=== PATIENT | male | born 1995 | race Two or more races ===

== ENCOUNTER 2023-10-18 15:40 | Emergency (ER) | payer OTHER ==
[2023-10-18 15:49] VITALS: BP 114/75; PULSE 91; RESP 16; TEMP 97.9; BMI 26.0
[2023-10-18] MEDS ORDERED: ACETAMINOPHEN INJECTION 100 ML IVPB ONE (16:35)
[2023-10-18] MEDS ORDERED: MAG HYDROX/AL HYDROX/SIMETH 30 ML UNIT-DOSE CUP ONE (16:35)
[2023-10-18 16:37] LABS: BASO % 0.8 % (0-2.0); EOS % 0.9 % (0-4.5); HEMATOCRIT 47.8 % (35.4-49); HEMOGLOBIN 16.2 GM/dL (11.7-16.9); LYMPH % 31.7 % (8-40); MCH 31.6 pg (25.7-33.7); MCHC 33.9 g/dl (32.0-35.9); MEAN CELL VOLUME 93.4 fl (80-96); MEAN PLT VOLUME 8.3 fl (7.5-11.1); NEUT % 58.6 % (42.8-82.8); PLATELET COUNT 179 10^3/uL (134-434); RBC 5.11 M/mm3 (4.00-5.60); RDW 13.5 % (11.9-15.9); WHITE BLOOD COUNT 5.6 K/mm3 (4.0-10.0)
[2023-10-18] MEDS: ACETAMINOPHEN 1000 MG/100 ML BAG IVPB ONE (16:43)
[2023-10-18] MEDS: LACTATED RINGERS SOLUTION 1000 ML INFUS.BAG IV ONE (16:43)
[2023-10-18] MEDS: MAG HYDROX/AL HYDROX/SIMETH -MYLANTA- ORAL SUSPENSION PO ONE (16:43)
[2023-10-18 17:04] LABS: POTASSIUM 4.4 mmol/L (3.5-5.1)
[2023-10-18 17:06] LABS: ALBUMIN 4.3 g/dl (3.4-5.0); CALCIUM 9.2 mg/dL (8.5-10.1)
[2023-10-18 17:07] LABS: BLOOD UREA NITROGEN 15.6 mg/dL (7-18)
[2023-10-18 17:09] LABS: CREATININE 0.9 mg/dL (0.55-1.3)
[2023-10-18 17:11] LABS: BILIRUBIN,TOTAL 0.5 mg/dL (0.2-1); TOT PROT 7.7 g/dl (6.4-8.2)
== END 2023-10-18 17:54 | disposition home or self-care (01) ==
LOC: JER 15:40
PROC: 3E033NZ Introduction of Analgesics, Hypnotics, Sedatives into Peripheral Vein, Percutaneous Approach (ICD-10-PCS; principal; 2023-10-18)
DX: R00.2 Palpitations (principal); R42 Dizziness and giddiness; R07.2 Precordial pain; R51.9 Headache, unspecified; R00.0 Tachycardia, unspecified
CPT/HCPCS: 36415; 71046-TC-FY; 80053; 83735; 84443; 84484; 85025; 93005; 93010; 99285-25; J0131

== ENCOUNTER 2024-07-27 03:51 | Emergency (ER) | payer OTHER ==
[2024-07-27 04:01] VITALS: BP 114/97; PULSE 82; RESP 18; TEMP 98; BMI 21.8
== END 2024-07-27 06:58 | disposition home or self-care (01) ==
LOC: JER 03:51
DX: R00.2 Palpitations (principal); G47.00 Insomnia, unspecified; F43.9 Reaction to severe stress, unspecified
CPT/HCPCS: 93005; 93010; 99283-25

== ENCOUNTER 2024-11-20 02:51 | Emergency (ER) | payer OTHER ==
[2024-11-20 03:04] VITALS: BP 117/84; PULSE 73; RESP 18; TEMP 98.2; BMI 20.2
== END 2024-11-20 03:53 | disposition home or self-care (01) ==
LOC: JER 02:51
DX: F41.9 Anxiety disorder, unspecified (principal); R07.89 Other chest pain; R06.02 Shortness of breath; R68.83 Chills (without fever); R00.2 Palpitations; F43.9 Reaction to severe stress, unspecified
CPT/HCPCS: 93005; 93010; 99283-25